=== PATIENT | female | born 1985 | race Caucasian/White ===

== ENCOUNTER 2018-06-11 14:04 | Emergency (ER) | payer OTHER ==
--- NOTE | 2018-06-11 15:39 | ER Document Report ---
ED Medical Screen (RME) - General TRAVEL OUTSIDE OF THE [place] IN LAST 30 DAYS: No <LINNEA VELARDE - Last Filed: 06/11/18 15:38> <JEET WHEATLEY - Last Filed: 06/11/18 18:15> - General Chief Complaint: Difficulty Swallowing Stated Complaint: POSSIBLE ALLERGIC REACTION Time Seen by Provider: 06/11/18 15:28 Notes: 32 years old female presents today with chest heaviness since yesterday, after eating some food. She thought she had allergic reaction to Benadryl without improvement. She also have a choking sensation in the throat. Denies any left arm numbness tingling sensation. Denies any fever chills. Denies any nausea vomiting. Not appear to be in any acute distress possible anxious (LINNEA VELARDE) - Related Data Allergies/Adverse Reactions: No Known Allergies Allergy (Verified 06/11/18 14:05) Past Medical History - Past Medical History Cardiac Medical History: Reports: Hx Hypertension Past Surgical History: Reports: Hx Oral Surgery - Immunizations Immunizations up to date: Yes Hx Diphtheria, Pertussis, Tetanus Vaccination: Yes - unknown <LINNEA VELARDE - Last Filed: 06/11/18 15:38> - Vital signs Vitals: Temp Pulse Resp BP Pulse Ox 98.9 F 81 16 143/92 H 98 06/11/18 14:10 06/11/18 14:10 06/11/18 14:10 06/11/18 14:10 06/11/18 14:10 Course - Laboratory Result Diagrams: 06/11/18 16:00 06/11/18 16:00 <JEET WHEATLEY - Last Filed: 06/11/18 18:15> - Vital Signs Vital signs: Temp Pulse Resp BP Pulse Ox 98.9 F 81 16 143/92 H 98 06/11/18 14:10 06/11/18 14:10 06/11/18 14:10 06/11/18 14:10 06/11/18 14:10 Doctor's Discharge <LINNEA VELARDE - Last Filed: 06/11/18 15:38> <JEET WHEATLEY - Last Filed: 06/11/18 18:15> - Discharge Clinical Impression: Allergic reaction Condition: Stable Disposition: HOME, SELF-CARE Instructions: Acute Allergic Reaction ([facility]) Prescriptions: Methylprednisolone [Medrol Dosepack (4 mg/Tab) 21 Tab/Dosepak] 4 mg PO ASDIR PRN #21 tab.ds.pk PRN Reason: Forms: Return to Work Referrals: ANABELL [facility], [Primary Care Provider] - Follow up tomorrow
--- NOTE | 2018-06-11 16:46 | RADIOLOGY REPORT (SQ) ---
EXAM DESCRIPTION: CHEST 2 VIEWS COMPLETED DATE/TIME: 06/11/2018 4:34 pm REASON FOR STUDY: CP COMPARISON: None. TECHNIQUE: Frontal and lateral radiographic views of the chest acquired. NUMBER OF VIEWS: Two view. LIMITATIONS: None. FINDINGS: LUNGS AND PLEURA: No opacities, masses or pneumothorax. No pleural effusion. MEDIASTINUM AND HILAR STRUCTURES: No masses or contour abnormalities. HEART AND VASCULAR STRUCTURES: Heart normal size. No evidence for failure. BONES: No acute findings. HARDWARE: None in the chest. OTHER: No other significant finding. IMPRESSION: NO SIGNIFICANT RADIOGRAPHIC FINDING IN THE CHEST. TECHNICAL DOCUMENTATION: JOB ID: [id number] [employer]- All Rights Reserved Reading location - IP/workstation name: [email or web address]
[2018-06-11 17:14] LABS: ABSOLUTE EOSINOPHILS # (AUTO) 0.1 10^3/uL (0.0-0.6); ABSOLUTE LYMPHOCYTES (AUTO) 1.6 10^3/uL (0.5-4.7); ABSOLUTE MONOCYTES (AUTO) 0.5 10^3/uL (0.1-1.4); ABSOLUTE NEUT (AUTO) 4.3 10^3/uL (1.7-8.2); BASOPHILS % (AUTO) 0.5 % (0-2); EOSINOPHILS % (AUTO) 1.1 % (0-6); HEMATOCRIT 38.5 % (36.0-47.0); HEMOGLOBIN 13.7 g/dL (12.0-15.5); LYMPHOCYTES % (AUTO) 24.8 % (13-45); MEAN CORPUSCULAR HEMOGLOBIN 31.5 pg (27.0-33.4); MEAN CORPUSCULAR HGB CONC 35.6 g/dL (32.0-36.0); MEAN CORPUSCULAR VOLUME 89 fl (80-97); MONOCYTES % (AUTO) 7.1 % (3-13); PLATELET COUNT 301 10^3/uL (150-450); RED BLOOD COUNT 4.34 10^6/uL (3.72-5.28); RED CELL DISTRIBUTION WIDTH 12.4 % (11.5-14.0); SEGMENTED NEUTROPHILS % (AUTO) 66.5 % (42-78); TOTAL CELLS COUNTED % (AUTO) 100 %; WHITE BLOOD COUNT 6.5 10^3/uL (4.0-10.5)
[2018-06-11 17:39] LABS: ALANINE AMINOTRANSFERASE 20 U/L (9-52); ALBUMIN 4.4 g/dL (3.5-5.0); ALKALINE PHOSPHATASE 51 U/L (38-126); ANION GAP 9 (5-19); ASPARTATE AMINO TRANSFERASE 28 U/L (14-36); BILIRUBIN,DIRECT 0.3 mg/dL (0.0-0.4); BILIRUBIN,TOTAL 0.7 mg/dL (0.2-1.3); BLOOD UREA NITROGEN 13 mg/dL (7-20); CALCIUM 9.5 mg/dL (8.4-10.2); CARBON DIOXIDE 26 mmol/L (22-30); CHLORIDE 106 mmol/L (98-107); CREATINE KINASE 42 U/L (30-135); GLUCOSE 92 mg/dL (75-110); POTASSIUM 4.4 mmol/L (3.6-5.0)
[2018-06-11 17:47] LABS: CREATINE KINASE MB < 0.22 ng/mL (<4.55); TROPONIN I < 0.012 ng/mL
[2018-06-11 18:30] VITALS: BP 136/86
--- NOTE | 2018-06-11 22:15 | ER Document Report ---
Entered by CARLOS WHALEN SCRIBE 06/11/182133 Acting as scribe for:JEET WHEATLEY DO ED ENT - General Chief Complaint: Difficulty Swallowing Stated Complaint: POSSIBLE ALLERGIC REACTION Time Seen by Provider: 06/11/18 15:28 Primary Care Provider: ANABELL [facility] DO [Primary Care Provider] - Follow up tomorrow Notes: 32 year old female that presents to the emergency department today with complaints of a sensation that her throat was closing. Patient states this happened yesterday after eating eggs, spinach, and milk. Patient states she tried taking Benadryl and Zantac and is not sure if it helped. Patient states again today she felt the same symptoms with chest pressure. Patient states she has a history of anxiety and she is not sure if this could be a cause. TRAVEL OUTSIDE OF THE [place] IN LAST 30 DAYS: No - Related Data Allergies/Adverse Reactions: No Known Allergies Allergy (Verified 06/11/18 14:05) Past Medical History - General Information source: Patient - Social History Smoking Status: Never Smoker Cigarette use (# per day): No Chew tobacco use (# tins/day): No Frequency of alcohol use: None Drug Abuse: None Lives with: Family Family History: Reviewed & Not Pertinent Patient has suicidal ideation: No Patient has homicidal ideation: No - Past Medical History Cardiac Medical History: Reports: Hx Hypertension Past Surgical History: Reports: Hx Oral Surgery - Immunizations Immunizations up to date: Yes Hx Diphtheria, Pertussis, Tetanus Vaccination: Yes - unknown Review of Systems - Review of Systems Constitutional: No symptoms reported EENT: See HPI, Other - throat closing sensation Cardiovascular: See HPI, Other - chest pressure Respiratory: No symptoms reported Gastrointestinal: No symptoms reported Genitourinary: No symptoms reported Female Genitourinary: No symptoms reported Musculoskeletal: No symptoms reported Skin: No symptoms reported Hematologic/Lymphatic: No symptoms reported Neurological/Psychological: See HPI, Anxiety -: Yes All other systems reviewed and negative Physical Exam - Vital signs Vitals: Temp Pulse Resp BP Pulse Ox 98.9 F 81 16 143/92 H 98 06/11/18 14:10 06/11/18 14:10 06/11/18 14:10 06/11/18 14:10 06/11/18 14:10 Interpretation: Normal - General General appearance: Appears well, Alert - HEENT Head: Normocephalic, Atraumatic Eyes: Normal Pupils: PERRL Mouth/Lips: No: Angioedema Mucous membranes: Moist Pharynx: Normal. No: Erythema, Exudate, Tonsillar hypertrophy, Uvular edema, Potential airway comprom. - Respiratory Respiratory status: No respiratory distress Chest status: Nontender Breath sounds: Normal Chest palpation: Normal - Cardiovascular Rhythm: Regular Heart sounds: Normal auscultation Murmur: No - Abdominal Inspection: Normal Distension: No distension Bowel sounds: Normal Tenderness: Nontender Organomegaly: No organomegaly - Back Back: Normal, Nontender - Extremities General upper extremity: Normal inspection, Nontender, Normal color, Normal ROM, Normal temperature General lower extremity: Normal inspection, Nontender, Normal color, Normal ROM, Normal temperature, Normal weight bearing. No: Alicja's sign - Neurological Neuro grossly intact: Yes Cognition: Normal Orientation: AAOx4 [place] Coma Scale Eye Opening: Spontaneous [place] Coma Scale Verbal: Oriented [place] Coma Scale Motor: Obeys Commands [place] Coma Scale Total: 15 Speech: Normal Motor strength normal: LUE, RUE, LLE, RLE Sensory: Normal - Psychological Associated symptoms: Normal affect, Normal mood - Skin Skin Temperature: Warm Skin Moisture: Dry Skin Color: Normal Course - Re-evaluation Re-evalutation: 06/11/18 22:14 Patient comes in complaining of altered sensation in her throat. Concern for allergy. Patient is not worried about anxiety attack. She feels much better at this time and has had no further sensation in her throat, swelling sensation, or difficulty breathing. Patient will be given a prescription for Medrol Dosepak to take if she starts to feel like she is having an allergic reaction. She had felt better after Benadryl she took at home. Otherwise, normal exam. Labs within normal limits. Stable for discharge. Follow-up PMD - Vital Signs Vital signs: Temp Pulse Resp BP Pulse Ox 98.6 F 88 15 136/86 H 100 06/11/18 18:28 06/11/18 18:28 06/11/18 18:28 06/11/18 18:28 06/11/18 18:28 - Laboratory Result Diagrams: 06/11/18 16:00 06/11/18 16:00 Discharge - Discharge Clinical Impression: Allergic reaction Qualifiers: Encounter type: initial encounter Qualified Code(s): T78.40XA - Allergy, unspecified, initial encounter Condition: Stable Disposition: HOME, SELF-CARE Instructions: Acute Allergic Reaction ([facility]) Prescriptions: Methylprednisolone [Medrol Dosepack (4 mg/Tab) 21 Tab/Dosepak] 4 mg PO ASDIR PRN #21 tab.ds.pk PRN Reason: Forms: Return to Work Referrals: ANABELL [facility] DO [Primary Care Provider] - Follow up tomorrow Scribe Attestation: 06/11/18 22:14 I personally performed the services described in the documentation, reviewed and edited the documentation which was dictated to the scribe in my presence, and it accurately records my words and actions. I personally performed the services described in the documentation, reviewed and edited the documentation which was dictated to the scribe in my presence, and it accurately records my words and actions.
--- NOTE | 2018-06-12 22:14 | EKG REPORT ---
SEVERITY:- BORDERLINE ECG - SINUS RHYTHM BORDERLINE T ABNORMALITIES, DIFFUSE LEADS : Confirmed by: Zachary Larson 12-Jun-2018 22:14:33
== END 2018-06-11 18:30 | disposition home or self-care (01) ==
LOC: ER 14:04
DX: T78.40XA Allergy, unspecified, initial encounter (principal); R09.89 Other specified symptoms and signs involving the circulatory and respiratory systems; R07.89 Other chest pain; X58.XXXA Exposure to other specified factors, initial encounter; I10 Essential (primary) hypertension
CPT/HCPCS: 36415; 71046; 80053; 82550; 82553; 84443; 84484; 85025; 93005; 93010; 99284